=== PATIENT | female | born 2000 | race Caucasian/White ===

== ENCOUNTER 2023-02-23 11:50 | Emergency (ER) | payer OTHER, SELFPAY ==
[2023-02-23 11:50] VITALS: BP 131/93; PULSE 104; RESP 16; TEMP 36.3; O2SAT 100; BMI 21.2
--- NOTE | 2023-02-23 12:29 | CT_ITS ---
STUDY: CT BRAIN WITHOUT CONTRAST REASON FOR EXAM: Female, 22 years old. Right-sided head injury due to trauma. RADIATION DOSAGE (If Supplied By Facility): CTDIvol = ( 47.06 ) mGy, DLP = ( 819.74 ) mGycm TECHNIQUE: Transaxial CT imaging of the brain was performed without administration of intravenous contrast material. Individualized dose optimization techniques were used for this CT. COMPARISON: No relevant priors. FINDINGS: Normal soft tissue structures. Normal calvarium. Normal size ventricles and extra-axial spaces for the patient''s age. Normal white matter tracts of the cerebral hemispheres. Normal basal ganglia and thalami. Normal brainstem. Normal cerebellum. There is no intracranial hemorrhage. There are no findings of an acute ischemic infarction. Normal visualized paranasal sinuses. CT/Brain/Head without Contrast IMPRESSION: Normal unenhanced CT scan of the brain. Electronically Signed: Leroy Guzman MD at 13:18 EDT ,
--- NOTE | 2023-02-23 12:29 | CT_ITS ---
STUDY: CT CERVICAL SPINE WITHOUT CONTRAST REASON FOR EXAM: Female, 22 years old. Injury due to a fall. RADIATION DOSAGE (If Supplied By Facility): CTDIvol = ( 15.07 ) mGy, DLP = ( 290.33 ) mGycm TECHNIQUE: High resolution transaxial imaging was performed without contrast material. Sagittal and coronal images were reconstructed. Individualized dose optimization techniques were used for this CT. COMPARISON: None FINDINGS: Normal craniovertebral junction. Normal anterior atlantoaxial articulation. Normal odontoid process. There is straightening of the normal cervical lordosis. Normal vertebral bodies and posterior osseous elements. C2-3: Normal endplates. Normal disc height and morphology. Normal central canal and intervertebral neuroforamina. C3-4: Normal endplates. Normal disc height and morphology. Normal central canal and intervertebral neuroforamina. C4-5: Normal endplates. Normal disc height and morphology. Normal central canal and intervertebral neuroforamina. C5-6: Normal endplates. Normal disc height and morphology. Normal central canal and intervertebral neuroforamina. C6-7: Normal endplates. Normal disc height and morphology. Normal central canal and intervertebral neuroforamina. C7-T1: Normal endplates. Normal disc height and morphology. Normal central canal and intervertebral neuroforamina. Normal visualized soft tissue structures. CT/Spine Cervical without Contras IMPRESSION: Loss of the normal cervical lordosis. Electronically Signed: Leroy Guzman MD at 13:19 EDT ,
--- NOTE | 2023-02-23 12:29 | EX.ED.DYSGE1 ---
HPI History of Present Illness Chief Complaint: Head Injury Informant: patient Onset/Context/Timing Onset: Days (4 days) Narrative Narrative: Patient presents with concussion symptoms for the past 4 days. 4 days ago she was loading items into the back of her pickup truck. She lost her balance and fell to the side striking her head on the pavement. She states the next morning she had a headache and some nausea but did drive to [place] and back. She continues to have concussions symptoms which she describes as headache and light sensitivity with difficulty concentrating. [facility] and they sent her to the emergency room. She was not seen after her head injury and has not had any imaging. She does report history of frequent head injuries [place], but states she is never really been seen by medical professional after any of her head injuries. PFSH PFSH Medical History no medical history no medical history Allergy/AdvReac Type Severity Reaction Status Date / Time No Known Allergies Allergy Verified 02/23/23 11:53 Social History Smoking Status: Never smoker ROS ROS ED Constitutional Constitutional ED: Denies chills or fever(s) Eyes Eyes: Reports other Details: Light sensitivity ; Denies change in vision or discharge from eye(s) ENT ENT ED: Denies discharge from eye(s), rhinorrhea or sore throat Cardiovascular Cardiovascular: Denies chest pain or palpitations Respiratory/Chest Respiratory/Chest: Denies cough or dyspnea Gastrointestinal Gastrointestinal: Reports nausea; Denies abdominal pain, diarrhea or vomiting Genitourinary Genitourinary ED: Denies dysuria Musculoskeletal Musculoskeletal: Denies back pain or extremity pain Integumentary Denies Abrasions or rash Neurologic Neurologic: Denies headache(s) or weakness Psychiatric Psychiatric: Denies anxiety or depression Allergic/Immunologic Allergic/Immunologic ED: Denies lip swelling or urticaria EXAM Physical Exam Const Vital Signs: 02/23/23 11:50 02/23/23 11:57 Temperature 97.4 F L Temperature Source Temporal Pulse Rate 104 H Respiratory Rate 16 Respiratory Pattern Normal Blood Pressure 131/93 H Blood Pressure Mean 105 Pulse Ox 100 Oxygen Delivery Method Room Air Positive well nourished and well developed General Appearance ED: well developed HEENT Reports normocephalic and head/scalp atraumatic Eyes PERRL and EOMs intact bilaterally Neck supple Chest Wall inspection of chest normal and palpation of chest normal Resp normal respiratory effort and clear to auscultation bilaterally Cardio regular rate and regular rhythm GI normal to inspection, nondistended, normoactive bowel sounds Palpation: soft Back/Spine Back/Spine Narrative: No midline cervical tenderness. Extremity normal to inspection Neuro oriented x3 and no sensory deficits noted Sensorium / Orientation: alert Motor Exam: strength 5/5 throughout Psych mental status grossly normal Skin no rashes or lesions noted MDM MDM MDM Narrative Medical decision making narrative: Patient sent for CT scan of the head and C-spine. Radiography Diagnostic Testing: Clinical Impression(s) from Imaging Studies Brain CT 02/23/23 12:29 IMPRESSION: Normal unenhanced CT scan of the brain. Electronically Signed: Leroy Guzman MD at 13:18 EDT , Cervical Spine CT 02/23/23 12:29 IMPRESSION: Loss of the normal cervical lordosis. Electronically Signed: Leroy Guzman MD at 13:19 EDT , Treatment and Re-Evaluation :: CT scan of the head reveals no acute findings. CT of the C-spine reveals loss of normal cervical lordosis. Advised her that symptoms of concussion can persist up to 3 weeks. She is advised to avoid eyestrain as much as possible and rest. Return instructions provided. Discharge Plan Triage Chief Complaint: Head Injury ED Provider: Noreen Reeves Dx/Rx/DC Orders Clinical Impression: Concussion Instructions: ED Concussion Primary Care Provider: Care Physician,No Primary Referrals: [facility] [Group of Physicians] - As Needed Care Physician,No Primary [Primary Care Provider] - Disposition Disposition: Home, Self Care
== END 2023-02-23 13:46 | disposition home or self-care (01) ==
PROVIDERS: Emergency Provider Emergency Medicine; Visit Provider Emergency Medicine
DX: S06.0X0A Concussion without loss of consciousness, initial encounter (principal); W19.XXXA Unspecified fall, initial encounter
CPT/HCPCS: 70450; 72125; 99282